=== PATIENT | male | born 1970 | race Caucasian/White ===

== ENCOUNTER → 2025-03-06 10:10 | Outpatient (REF) | payer OTHER, SELFPAY | LOC: HWRAD 10:10 | PROVIDERS: ATTENDING PHYSICIAN Physician Assistant Medical | DX: R05.9 Cough, unspecified (principal); R53.83 Other fatigue | CPT/HCPCS: 71046 ==

== ENCOUNTER → 2025-11-07 15:53 | Outpatient (REF) | payer OTHER, SELFPAY | LOC: RAD 15:53 | PROVIDERS: ATTENDING PHYSICIAN Physician Assistant Medical; FAMILY PHYSICIAN Nurse Practitioner Family | DX: R19.7 Diarrhea, unspecified (principal); R05.3 Chronic cough; R53.83 Other fatigue | CPT/HCPCS: 71046 ==